=== PATIENT | female | born 1990 | race Two or more races ===

== ENCOUNTER 2018-03-20 21:25 | Emergency (ER) | payer SELFPAY ==
[~2018-03-20] VITALS: Ht 172.7 cm; Wt 96.6 kg
[~2018-03-20 21:25] MED LIST: AMOXICILLIN500 M1 PO; BACTRIM,SEPT1 TABLET PO; DOXYCYCLINE HY100 MG PO; FEROSUL325 MG PO; IBUPROFEN800 MG PO; MACROBID100 MG PO; NORCO 5/3251 TABLET PO; PERCOCET 5/31 TABLET PO
[2018-03-20 22:15] LABS: APPEARANCE CLOUDY ((CLEAR)); BILIRUBIN NEGATIVE; BLOOD SMALL; COLOR YELLOW ((YELLOW)); GLUCOSE (STRIP) NEGATIVE; KETONES NEGATIVE; LEUKOCYTES LARGE; NITRITE NEGATIVE; PROTEIN (STRIP) 30; SPECIFIC GRAVITY 1.031 (1.000-1.030)
[2018-03-20 22:19] LABS: HEMATOCRIT 39.8 % (36.0-46.0); HEMOGLOBIN 13.1 G/DL (11.9-15.5); MCH 29.2 PG (29.0-34.0); MCHC 32.9 G/DL (30.0-36.0); MCV 88.8 FL (83-99); PLATELET COUNT 247 K/uL (156-360); RBC DIS.WIDTH-CV 11.7 % (11.8-14.6); RBC DIS.WIDTH-SD 37.4 % (39-53); RED BLOOD COUNT 4.48 M/uL (3.80-5.20); WHITE BLOOD COUNT 9.4 K/uL (4.1-10.2)
[2018-03-20 22:35] LABS: SOURCE SWAB
[2018-03-20 22:35] LABS: CHLORIDE 105 mEq/L (99-109); POTASSIUM 3.7 mEq/L (3.7-5.4); SODIUM 139 mEq/L (136-147)
[2018-03-20 22:36] LABS: GLUCOSE 99 mg/dL (70-99)
[2018-03-20 22:40] LABS: CREATININE 0.9 mg/dL (0.6-1.3); GFR ESTIMATE (CALCULATED) > 59 mL/min/
[2018-03-20 22:41] LABS: UREA NITROGEN (BUN) 14 mg/dL (9-23)
[2018-03-20 22:44] LABS: BACTERIA RARE /HPF; EPITHELIAL CELLS RARE /HPF; MUCUS 1+ /LPF; UCUL ADDED? YES; WHITE BLOOD CELLS 40-50 /HPF (0-5)
[2018-03-20 22:49] LABS: QUANTITATIVE HCG < 4.0 MIU/ML
[2018-03-20] MEDS ORDERED: MACROBID100 MG PO (23:00)
[2018-03-20 23:19] VITALS: BP 120/81
== END 2018-03-20 23:21 | disposition home or self-care (01) ==
LOC: EME 21:25
PROVIDERS: Physician Assistant
DX: N39.0 Urinary tract infection, site not specified (principal); N89.8 Other specified noninflammatory disorders of vagina; F17.200 Nicotine dependence, unspecified, uncomplicated
CPT/HCPCS: 80048; 81003; 84702; 85027; 87086; 87210; 87491; 87591; 99281; 99285; J0696